=== PATIENT | female | born 1965 | race Caucasian/White ===

== ENCOUNTER → 2016-10-31 | Outpatient (CLI) | payer OTHER ==
[~2016-10-31] MED LIST: DUO-KAPS1 CAP PO; FLAGYL500 MG PO; MAXALT MLT10 MG/TAB PO; MOTRIN 600600 MG/TAB PO; VITAMIN C500 MG PO; VITAMIN D32000 I1 PO
[2016-10-31 15:37] LABS: PHOSPHOROUS 3.6 mg/dL (2.5-4.5)
== END ==
LOC: ZCOL.LAB 15:05
DX: Z01.89 Encounter for other specified special examinations (principal)

== ENCOUNTER → 2016-11-01 | Outpatient (REF) ==
[2016-11-01 05:28] LABS: ALBUMIN 3.7 gm/dL (3.5-5.0); CALCIUM 9.2 mg/dL (8.4-10.2); PHOSPHOROUS 4.6 mg/dL (2.5-4.5)
== END ==
LOC: ZMSC 05:13
PROVIDERS: Otolaryngology
DX: Z01.89 Encounter for other specified special examinations (principal)